=== PATIENT | male | born 1955 | race Caucasian/White ===

== ENCOUNTER → 2017-03-31 | Outpatient (CLI) | payer OTHER ==
[~2017-03-31] MED LIST: ASPI325T39 PO; DIAZ5TAB3 PO; GLUCTAB7 PO; HYDR-4383 PO; MELO7.5T5 PO; METO25TA56 PO; RIVA1TAB4 PO
[2017-03-31 16:45] LABS: HEMATOCRIT 42.7 % (42-52); MEAN CELL VOLUME 93.8 fL (80-100); MEAN CORPUSCULAR HEMOGLOBIN 32.7 pg (25-34); MEAN CORPUSCULAR HGB CONC 34.9 g/dl (32-36); MEAN PLATELET VOLUME 10.8 fL (7.4-10.4); PLATELET COUNT 197 K/uL (130-400); RED BLOOD COUNT 4.55 M/uL (4.7-6.1); WHITE BLOOD COUNT 8.24 K/uL (4.8-10.8)
[2017-03-31 17:08] LABS: ALT/SGPT 35 U/L (12-78); BLOOD UREA NITROGEN 18 mg/dl (7-18); BUN/CREATININE RATIO 22.3 (10-20); CARBON DIOXIDE 23 mmol/L (21-32); CHLORIDE 108 mmol/L (98-107); CHOLESTEROL 142 mg/dl (0-200); CREATININE 0.81 mg/dl (0.60-1.40); GLUCOSE 96 mg/dl (70-99); SODIUM 141 mmol/L (136-145); TRIGLYCERIDES 423 mg/dl (0-150)
[2017-03-31 17:12] LABS: CALCIUM 8.9 mg/dl (8.5-10.1)
[2017-03-31 17:18] LABS: ALKALINE PHOSPHATASE 96 U/L (45-117); AST/SGOT 26 U/L (15-37); CHOLESTEROL/HDL RATIO 4.4; HDL CHOLESTEROL 32 mg/dl
[2017-04-01 08:17] LABS: ESTIMATED AVERAGE GLUCOSE 128 mg/dl; HA1C FLAG Normal (Normal)
== END | disposition home or self-care (01) ==
LOC: C.LAB1850 15:27
PROVIDERS: ATTEND Internal Medicine Cardiovascular Disease
DX: Z00.00 Encounter for general adult medical examination without abnormal findings (principal); I48.0 Paroxysmal atrial fibrillation; R73.01 Impaired fasting glucose

== ENCOUNTER → 2017-05-30 | Day surgery (SDC) | payer OTHER ==
[~2017-05-30] VITALS: Ht 198.1 cm; Wt 125.0 kg
[~2017-05-30] MED LIST changes: +PROPOFOL IV EMULSION 10 MG/ML 20 ML VIAL IV ONE
[2017-05-30 07:00] VITALS: BP 122/82; PULSE 69; TEMP 36.5; O2SAT 96; Ht 198.1 cm; Wt 125.0 kg
[2017-05-30 07:57] VITALS: BP 135/75; PULSE 75; O2SAT 99
[2017-05-30 08:02] VITALS: BP 120/81; PULSE 65; O2SAT 94
[2017-05-30 08:07] VITALS: BP 126/78; PULSE 68; O2SAT 94
--- NOTE | 2017-05-30 08:13 | Procedure Note ---
Procedure Note Procedure Date May 30, 2017. Procedure Description Procedure Name: EXTERNAL ELECTRICAL CARDIOVERSION FOR PERSISTENT ATRIAL FIBRILLATION Procedure time out: patient ID confirmed, correct procedure Consent obtained: written Time of procedure: 08:02 Indications: therapeutic Contraindications: none Description: Anesthesia with propofol per Dr. Barton. External pads placed in standard AP position. Received 1 synchronized shock at 200J with conversion to sinus rhythm. Complications: none Patient tolerated procedure: well Post-procedure vital signs: reviewed and stable Comments: Summary: Successful electrical cardioversion
--- NOTE | 2017-05-30 08:27 | Discharge Instructions ---
Discharge Instructions Procedure Procedure Date: May 30, 2017. Reason for Visit: A-Fib *W/Anesthesia. Discharge Discharge Date: May 30, 2017. Discharge Diagnosis: Atrial fibrillation Last Recorded Wt (Kilograms): 125 Anesthesia Post Anesthesia Instructions: If you have had General Anesthesia or IV Sedation: * Do not drive today. * Resume driving when surgeon permits. * Do not make important decisions or sign legal documents today. * Call surgeon for: 1. Temperature elevations greater than 101 degrees F. 2. Uncontrollable pain. 3. Excessive bleeding. 4. Persistent nausea and vomiting. 5. Medication intolerance (nausea, vomiting or rash). * For nausea and vomiting use only clear liquids such as: tea, soda, bouillon until nausea subsides, then gradually increase diet as tolerated. * If you have any concerns or questions, call your surgeon's office. If physician is unavailable and it is an emergency, call 911 or go to the nearest emergency room. Instructions Activity Recommendations: limitations (Light activities today. Can resume normal activities tomorrow. ) Recommended Home Diet: resume previous diet Allergies: Coded Allergies: No Known Allergies (Unverified , 05/30/17) Follow Up Follow-up with: Follow-up with Dr. Verdin as scheduled [facility] Recommendations: Call your doctor if: * Temperature above 101 degrees * Pain not relieved by pain medicine ordered * There is increased drainage or redness from any incision * You have any unanswered questions or concerns. Your Doctors Instructions noted above were prepared by provider Mauro Joiner. Patient Signature Section: Patient Instructions Signature Page Preston Hanna Patient (or Guardian) Signature/Date: I have read and understand the instructions given to me by my caregivers. Caregiver/RN/Doctor Signature/Date: The above-named patient and/or guardian has received patient instructions on this date. + Original Patient Signature Page (only) stays with chart. Please make copy for patient.
--- NOTE | 2017-05-30 08:35 | Anesthesiology Progress Note ---
Anesthesia Post Op Note Date & Time May 30, 2017 at 08:35 Vital Signs Pain Intensity: 0 Vital Signs Past 12 Hours Date Time Temp Pulse Resp B/P (MAP) Pulse Ox O2 Delivery O2 Flow Rate FiO2 05/30/17 08:29 73 18 119/72 (88) 96 Room Air 05/30/17 08:19 71 18 126/69 (88) 95 Room Air 05/30/17 08:09 72 18 122/68 (86) 98 Nasal Cannula 4 05/30/17 08:07 68 18 126/78 94 Nasal Cannula 4 05/30/17 08:02 65 18 120/81 94 Nasal Cannula 4 05/30/17 07:57 75 18 135/75 99 Nasal Cannula 4 05/30/17 07:00 36.5 69 18 122/82 96 Room Air Notes Mental Status: alert / awake / arousable, participated in evaluation Pt Amnestic to Procedure: Yes Nausea / Vomiting: adequately controlled Pain: adequately controlled Airway Patency, RR, SpO2: stable & adequate BP & HR: stable & adequate Hydration State: stable & adequate Anesthetic Complications: no major complications apparent
[2017-05-30 09:00] VITALS: BP 122/73; PULSE 77; O2SAT 96
== END | disposition home or self-care (01) ==
LOC: C.CATH 06:58
PROVIDERS: ATTEND Internal Medicine Cardiovascular Disease
DX: I48.1 Persistent atrial fibrillation (principal); Z82.49 Family history of ischemic heart disease and other diseases of the circulatory system; Z87.891 Personal history of nicotine dependence; F41.9 Anxiety disorder, unspecified; Z79.82 Long term (current) use of aspirin